=== PATIENT | male | born 1975 | race Caucasian/White ===

== ENCOUNTER 2019-08-31 14:11 | Emergency (ER) | payer BC ==
[2019-08-31] MEDS ORDERED: traMADol 50 MG Tab PO ONE (14:43)
--- NOTE | 2019-08-31 15:51 | ER ---
DATE SEEN: 08/31/2019 REASON FOR VISIT: Unresponsive. HISTORY OF PRESENT ILLNESS: This is a 44-year-old male who was brought in by ambulance. Apparently, his was looking for him and found him beside the lawnmower, calling for help. He seemed to be in and out of consciousness. He admits to have been drinking alcohol. In the emergency room, he is belligerent and uncooperative. He denies chest pain or shortness of breath. No headache. REVIEW OF SYSTEMS: No fever or chills. No seizure disorder noted or witnessed. He did complain of back pain. PAST MEDICAL HISTORY: Alcohol abuse, was admitted in 2016 for alcohol intoxication. ALLERGIES: He has no allergies. PHYSICAL EXAMINATION: GENERAL: Today, he is alert and oriented x3. VITAL SIGNS: He has a blood pressure of 160/100. He is afebrile. HEENT: Head is atraumatic. Eyes are normal. CHEST: Clear. ABDOMEN: Soft. MENTAL STATUS: He is alert and speech is elevated in volume. His thought process is noncongruent. Memory to short-term is low. He does appear obviously intoxicated. DATA: Laboratories and EKG, he declined. IMPRESSION: 1. Alcohol intoxication. 2. Back pain. PLAN: Tramadol 50 mg x1 dose. He also got 800 mL of normal saline on the way in the emergency room. I discharged him home in the company of his . Follow up with his PCP. /[id number] KAROLYN/MARIELYL
[2019-08-31 17:29] VITALS: BP 161/107; PULSE 106
== END 2019-08-31 15:26 | disposition home or self-care (01) ==
LOC: FB.ED 14:11
DX: F10.129 Alcohol abuse with intoxication, unspecified (principal); M54.9 Dorsalgia, unspecified
CPT/HCPCS: 36415; 80053; 80305; 80307; 85025; 99284; A9270

== ENCOUNTER 2019-12-15 17:05 | Emergency (ER) | payer BC ==
[2019-12-15 17:23] VITALS: BP 151/80; PULSE 101
--- NOTE | 2019-12-15 17:23 | EDM.PDOC ---
ED HPI GENERAL MEDICAL PROBLEM - General Chief Complaint: Upper Extremity Injury/Pain Stated Complaint: FELL OUT OF TRACTOR INJURED SHOULDER Time Seen by Provider: 12/15/19 17:20 Source of Information: Reports: Patient History Limitations: Reports: No Limitations - Related Data Allergies Allergy/AdvReac Type Severity Reaction Status Date / Time No Known Allergies Allergy Verified 09/11/14 10:15 Home Meds: Home Meds NK [No Known Home Meds] 08/21/15 [History] Past Medical History - Past Health History Medical/Surgical History: Denies Medical/Surgical History Psychiatric History: Reports: Addiction Other Psychiatric History: alcoholic - Past Surgical History Neurological Surgical History: Reports: Discectomy Social & Family History - Family History Family Medical History: Noncontributory Psychiatric: Reports: Other (See Below) Other Psychiatric Family History: all grandparents alcoholics Oncologic: Reports: Colon, Lung Other Oncologic Family History: mom had lung cancer and father had prostate cancer Course - Orders/Labs/Meds Orders: Active Orders 24 hr Category Date Time Status Shoulder Comp Rt [CR] Stat Exams 12/15/19 17:22 Ordered Departure - Discharge Information - My Orders Last 24 Hours: My Active Orders 12/15/19 17:22 Shoulder Comp Rt [CR] Stat - Assessment/Plan Last 24 Hours: My Active Orders 12/15/19 17:22 Shoulder Comp Rt [CR] Stat
== END 2019-12-15 17:29 | disposition left against medical advice (07) ==
LOC: FB.ED 17:05
DX: Z53.21 Procedure and treatment not carried out due to patient leaving prior to being seen by health care provider (principal)